=== PATIENT | female | born 1990 | race Two or more races ===

== ENCOUNTER 2019-07-06 23:20 | Emergency (ER) | payer OTHER ==
[2019-07-06] MEDS ORDERED: ACETAMINOPHEN 500 MG TABLET (FP) PO ONE (23:45)
[2019-07-06] MEDS ORDERED: ACETAMINOPHEN 325 MG TABLET (FP) ONE (23:46)
[2019-07-06 23:51] VITALS: BP 125/74; PULSE 74; TEMP 98.9; BMI 26.0
[2019-07-06 23:59] LABS: BASO % 0.3 % (0-2.0); EOS % 1.9 % (0-4.5); HEMATOCRIT 34.6 % (32.4-45.2); HEMOGLOBIN 11.6 GM/dL (10.7-15.3); LYMPH % 33.5 % (8-40); MCH 27.5 pg (25.7-33.7); MCHC 33.6 g/dl (32.0-36.0); MEAN CELL VOLUME 81.9 fl (80-96); MEAN PLT VOLUME 8.9 fl (7.5-11.1); MONO % 6.3 % (3.8-10.2); PLATELET COUNT 237 K/MM3 (134-434); RBC 4.22 M/mm3 (3.60-5.2); RDW 14.5 % (11.6-15.6); WHITE BLOOD COUNT 7.8 K/mm3 (4.0-10.0)
--- NOTE | 2019-07-07 00:18 | PDOC ---
Documentation entered by Janiya Pickering SCRIBE, acting as scribe for Zofia Barahona DO. Zfoia Barahona DO: This documentation has been prepared by the Ladan armando Brenda, SCRIBE, under my direction and personally reviewed by me in its entirety. I confirm that the documentation accurately reflects all work, treatment, procedures, and medical decision making performed by me. History of Present Illness - General Chief Complaint: Cold Symptoms Stated Complaint: HEADACHE/COUGH Time Seen by Provider: 07/06/19 23:30 History Source: Patient Exam Limitations: No Limitations - History of Present Illness Initial Comments: 07/06/19 23:45 The patient is a 29 year old female with no significant PMH who presents to the Ed for evaluation of non productive cough after exposure to COVID-19 at school. 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 Patient endorses having a fever Thursday, but returned to school on Thursday (07/04/19), however did not go for the following; Thursday and Thursday. Patient also endorses a headache, for which she took an unknown medication for 1 hour prior to ED arrival. Allergies: NKA PCP: Nitin Nguyen Past History - Past Medical History Allergies/Adverse Reactions: Allergies Allergy/AdvReac Type Severity Reaction Status Date / Time No Known Allergies Allergy Verified 04/12/16 14:52 Home Medications: Ambulatory Orders Ferrous Sulfate [Feosol] 325 mg PO BID #90 tablet 04/13/16 Medroxyprogesterone Acetate [Provera] 10 mg PO DAILY #20 tablet 04/13/16 Miscellaneous Medical Supply [Outpatient Order] 1 each ASDIR #1 misc 04/13/16 Miscellaneous Medical Supply [Outpatient Order] 1 each ASDIR #1 misc 04/13/16 Multivitamins [Multivit ([facility] Formul[facility])] 1 tab PO DAILY #60 tab 04/13/16 Asthma: No Cancer: No Cardiac Disorders: No Diabetes: No HTN: No Seizures: No Thyroid Disease: No - Psycho Social/Smoking Cessation Hx Smoking History: Never smoked Have you smoked in the past 12 months: No Hx Alcohol Use: Yes (SOCIAL) Drug/Substance Use Hx: No Substance Use Type: None Hx Substance Use Treatment: No Review of Systems - Review of Systems Able to Perform ROS?: Yes Comments:: 07/07/19 00:00 GENERAL/CONSTITUTIONAL: No weakness. HEAD, EYES, EARS, NOSE AND THROAT: (+) Headache. No change in vision. No ear pain or discharge. No sore throat. CARDIOVASCULAR: No chest pain or shortness of breath. RESPIRATORY: (+) nonproductive cough. No wheezing, or hemoptysis. GASTROINTESTINAL: No nausea, vomiting, diarrhea or constipation. GENITOURINARY: No dysuria, frequency, or change in urination. MUSCULOSKELETAL: No joint or muscle swelling or pain. No neck or back pain. SKIN: No rash NEUROLOGIC: No vertigo, loss of consciousness, or change in strength/sensation. ENDOCRINE: No increased thirst. No abnormal weight change. HEMATOLOGIC/LYMPHATIC: No anemia, easy bleeding, or history of blood clots. ALLERGIC/IMMUNOLOGIC: No hives or skin allergy. *Physical Exam - Physical Exam 07/06/19 23:59 GENERAL: Awake, alert, and fully oriented, in no acute distress HEAD: No signs of trauma EYES: PERRLA, EOMI, sclera anicteric, conjunctiva clear ENT: (+) Oropharynx is mildly erythematous. Auricles normal inspection, hearing grossly normal, nares patent. Moist mucosa NECK: Normal ROM, supple, no lymphadenopathy, JVD, or masses LUNGS: Breath sounds equal, clear to auscultation bilaterally. No wheezes, and no crackles HEART: Regular rate and rhythm, normal S1 and S2, no murmurs, rubs or gallops ABDOMEN: Soft, nontender, normoactive bowel sounds. No guarding, no rebound. No masses EXTREMITIES: Normal range of motion, no edema. No clubbing or cyanosis. No cords, erythema, or tenderness NEUROLOGICAL: Cranial nerves II through XII grossly intact. Normal speech, normal gait SKIN: Warm, Dry, normal turgor, no rashes or lesions noted. ED Treatment Course - LABORATORY CBC & Chemistry Diagram: 07/06/19 23:50 07/06/19 23:50 Medical Decision Making - Medical Decision Making 07/07/19 00:13 a/p: 29yo female with fever since thursday and cough. -pt c/o headache as well -no sore throat, no rhinorrhea -no rashes -no abd pain -pt works at [employer] where apparently 3 students have tested positive -swabs sent, labs sent, will obtain cxr -will give tylenol for pain -call placed to the [facility] - message has been left, paperwork and swabs have been complete/sent -will monitor and reassess 07/07/19 00:32 case discussed with [facility] - pending call from doc 07/07/19 01:01 flu neg rsv neg kamara improved with tylenol labs reviewed, no elevated wbc xray being performed 07/07/19 01:14 cxr clear pt stable for dc to home home quarantine pending coronavirus testing discussed home quarantine and when her family should get tested answered all quesitons Discharge - Discharge Information Problems reviewed: Yes Clinical Impression/Diagnosis: Cough, Headache Condition: Stable Disposition: HOME - Admission No - Follow up/Referral Referrals: Bin Anderson MD [Primary Care Provider] - - Patient Discharge Instructions Patient Printed Discharge Instructions: DI for Viral Upper Respiratory Infection -- Adult Additional Instructions: Please go straight home. Please place yourself on home quarantine. Please do not go to work and please do not go out to public placed. Please drink plenty of fluids. Please take tylenol or motrin as needed for the headache and fever. Your family should also stay home on quarantine. At this time, you need to watch for symptoms in your family, they do not need testing if they do not develop symptoms. Your womack virus testing will take a few days to result. We are waiting for the department of health. Please return to the ER with any further concerns or complaints. Please wash your hands frequently and always before touching your family or your face/food/mouth. please wash your hands after coughing, sneezing, or any concerns they are contaminated. - Post Discharge Activity
[2019-07-07 00:33] LABS: ALBUMIN 3.6 g/dl (3.4-5.0); BILIRUBIN,TOTAL 0.2 mg/dL (0.2-1); BLOOD UREA NITROGEN 15.4 mg/dL (7-18); CALCIUM 8.3 mg/dL (8.5-10.1); CREATININE 0.7 mg/dL (0.55-1.3); POTASSIUM 3.6 mmol/L (3.5-5.1); TOT PROT 7.5 g/dl (6.4-8.2)
== END 2019-07-07 01:23 | disposition home or self-care (01) ==
LOC: JER 23:20
DX: R05 Cough (principal); R51 Headache
CPT/HCPCS: 36415; 71045-TC-FY; 80053; 84703; 85025; 87804; 87807; 99284-25

== ENCOUNTER 2020-01-30 07:15 | Emergency (ER) | payer OTHER ==
[2020-01-30 07:27] VITALS: BP 128/78; PULSE 77; TEMP 98.4; BMI 30.6
[2020-01-30] MEDS ORDERED: DOCUSATE NA 100 MG/10 ML UNIT-DOSE CUPS PO ONE (07:50)
[2020-01-30] MEDS ORDERED: ACETAMINOPHEN 325 MG TABLET (FP) PO ONE (07:50)
[2020-01-30] MEDS ORDERED: ACETAMINOPHEN 500 MG TABLET (FP) ONE (07:53)
--- NOTE | 2020-01-30 07:53 | PDOC ---
History of Present Illness - General Chief Complaint: Ear Problem Stated Complaint: EAR PAIN Time Seen by Provider: 01/30/20 07:30 History Source: Patient Exam Limitations: No Limitations Past History - Travel History Traveled outside of the country in the last 30 days: No Close contact w/someone who was outside of country & ill: No - Medical History Allergies/Adverse Reactions: Allergies Allergy/AdvReac Type Severity Reaction Status Date / Time No Known Allergies Allergy Verified 01/30/20 07:23 Home Medications: Ambulatory Orders Ferrous Sulfate [Feosol] 325 mg PO BID #90 tablet 04/13/16 Medroxyprogesterone Acetate [Provera] 10 mg PO DAILY #20 tablet 04/13/16 Miscellaneous Medical Supply [Outpatient Order] 1 each ASDIR #1 misc 04/13/16 Miscellaneous Medical Supply [Outpatient Order] 1 each ASDIR #1 misc 04/13/16 Multivitamins [Multivit ([facility] Formulary)] 1 tab PO DAILY #60 tab 04/13/16 Ciprofloxacin HCl/Dexameth [Ciprodex Otic Suspension] 4 drop OU BID #1 bottle 01/30/20 Clindamycin [Cleocin -] 300 mg PO TID #21 capsule 01/30/20 Asthma: No Cancer: No Cardiac Disorders: No COPD: No Diabetes: No HTN: No Seizures: No Thyroid Disease: No - Reproductive History Is Patient Now?: No - Psycho-Social/Smoking History Smoking History: Never smoked Have you smoked in the past 12 months: No - Substance Abuse Hx (Audit-C & DAST Scrn) How often the patient has a drink containing alcohol: Monthly or less Number of drinks the patient has on a typical day: 1 or 2 How often the patient has six or more drinks on one occasion: Never Score: In Men: 4 or > Positive; In Women: 3 or > Positive: 1 Screen Result (Pos requires Nsg. Audit-10AR): Negative In the last yr the pt used illegal drug/Rx for NonMed reason: No Score: Yes response is considered Positive: 0 Screen Result (Positive result requires Nsg. DAST-10): Negative Review of Systems - Review of Systems Able to Perform ROS?: Yes Comments:: 01/30/20 07:51 CONSTITUTIONAL: Absent: fever, chills, diaphoresis, generalized weakness, malaise, loss of appe tite HEENT: Present: Ear pain Absent: rhinorrhea, nasal congestion, throat pain, throat swelling, difficulty swallowing, mouth swelling, eye pain, visual Changes CARDIOVASCULAR: Absent: chest pain, loss of consciousness, palpitations, irregular heart rate, peripheral edema RESPIRATORY: Absent: cough, shortness of breath, dyspnea with exertion, orthopnea, wheezing, stridor, hemoptysis GASTROINTESTINAL: Absent: abdominal pain, abdominal distension, nausea, vomiting, diarrhea, constipation, melena, hematochezia GENITOURINARY: Absent: dysuria, frequency, urgency, hesitancy, hematuria, flank pain, genital pain MUSCULOSKELETAL: Absent: myalgia, arthralgia, joint swelling SKIN: Absent: rash, itching, pallor HEMATOLOGIC/IMMUNOLOGIC: Absent: easy bleeding, easy bruising, lymphadenopathy, frequent infections ENDOCRINE: Absent: unexplained weight gain, unexplained weight loss, heat intolerance, cold intolerance NEUROLOGIC: Absent: headache, focal weakness or paresthesias, dizziness, unsteady gait, seizure, mental status changes, bladder or bowel incontinence PSYCHIATRIC: Absent: anxiety, depression, suicidal or homicidal ideation, hallucinations. Is the patient limited Vietnamese proficient: No *Physical Exam - Vital Signs Last Vital Signs Temp Pulse Resp BP Pulse Ox 98.4 F 77 16 128/78 100 01/30/20 07:15 01/30/20 07:15 01/30/20 07:15 01/30/20 07:15 01/30/20 07:15 - Physical Exam 01/30/20 07:52 GENERAL: The patient is awake, alert, and fully oriented, in no acute distress. HEAD: Normal with no signs of trauma. EYES: Pupils equal, round and reactive to light, extraocular movements intact, sclera anicteric, conjunctiva clear. HEENT: No nasal congestion or rhinorrhea. No sinus Tenderness. Mucous membranes are moist. No tonsillar erythema, exudate or edema. Uvula is midline. (-) R TM bulging, dullness or erythema. L TM is obstructed by wax, questionable otorrhea EXTREMITIES: Normal range of motion, no edema. NEUROLOGICAL: Normal speech, normal gait. PSYCH: Normal mood, normal affect. SKIN: Warm, Dry, normal turgor, no rashes or lesions noted. Medical Decision Making - Medical Decision Making 01/30/20 07:52 Patient is a 29-year-old female no past medical history who presents to the ER today for left-sided ear pain. She states her pain started over a week ago. She states she has had 2 rounds of amoxicillin given to her by her primary care doctor in urgent care with little relief of her symptoms. She states has been taking Tylenol Motrin without relief of her pain. Denies dizziness, lightheadedness nausea and vomiting. A/P: Earache On exam there is a large chunk of earwax within the left ear obstructing the TM. Colace ordered, will flush the ear and reevaluate the TM. 01/30/20 08:54 Ear canal was flushed with wax removed L TM with pustules behind the TM, also noted otorrhea in canal as well Will place pt on Ciprodex drops and switch pt to Clindamycin for AOM DC home with ENT follow up I discussed the physical exam findings, ancillary test results and final diagnoses with the patient. I answered all of the patient's questions. The patient was satisfied with the care received and felt comfortable with the discharge plan and treatment plan. The Patient agrees to follow up with the primary care physician/specialist within 24-72 hours. Return precautions were given. Discharge - Discharge Information Problems reviewed: Yes Clinical Impression/Diagnosis: Otitis media Qualifiers: Otitis media type: suppurative Chronicity: acute Laterality: left Recurrence: non-recurrent Spontaneous tympanic membrane rupture: without spontaneous rupture Qualified Code(s): H66.002 - Acute suppurative otitis media without spontaneous rupture of ear drum, left ear Otitis externa Qualifiers: Otitis externa type: unspecified type Chronicity: acute Laterality: left Qualified Code(s): H60.502 - Unspecified acute noninfective otitis externa, left ear Condition: Stable Disposition: HOME - Admission No - Follow up/Referral Referrals: Cameron Duran MD [Staff Physician] - Ravinder Barksdale MD [Staff Physician] - - Patient Discharge Instructions Patient Printed Discharge Instructions: DI for Otitis Externa, DI for Otitis Media (Middle Ear Infection)-Child Additional Instructions: You were seen today for ear pain. You have an ear infection behind the ear drum as well as in the ear canal. Please take the clindamycin as directed. Stop taking the amoxicillin. Please take this medication with food. You may also use the eardrops in both ears twice a day to help with the pain. You may take Motrin 600 mg every 6 hours. Please follow-up with ENT today. 2 referrals have been provided to you. Return to the ER for worsening pain, fever or if you have any changes in your symptoms Hoy te vieron por dolor de odo. Tiene ramos infeccin de odo detrs del tmpano y en el canal auditivo. Hough la clindamicina segn las indicaciones. Deje de ty amoxicilina. Hough sasha medicamento con comida. Tambin puede usar las gotas para los odos en ambos odos dos veces al da para ayudar con el dolor. Puede ty Motrin 600 mg cada 6 horas. Mary Alice un seguimiento con ENT hoy. Se le de león proporcionado 2 referencias. Regrese a la adolfo de emergencias si el dolor empeora, la fiebre o si tiene algn cambio en gillian sntomas Print Language: [id number] - Post Discharge Activity Work/Back to School Note: Back to Work
--- OUTSIDE RECORDS SUMMARY | 2020-01-30 07:54 | XMS ---
:1990 Author Organization [facility] Support Name Relationship Address Phone [facility] Unavailable [address] [place] [address] UE Unavailable Unavailable Unavailable TAZ HOWARD FRIEND [address] [place] [address] MARY ELLEN RANGEL SISTER [address] [place] [address] TAZ GLASGOW Unavailable [address] [place] [place] [address] Re-disclosure Warning The records that you are about to access may contain information from federally- assisted alcohol or drug abuse programs. If such information is present, then the following federally mandated warning applies: This information has been disclosed to you from records protected by federal confidentiality rules (42 CFR part 2). The federal rules prohibit you from making any further disclosure of this information unless further disclosure is expressly permitted by the written consent of the person to whom it pertains or as otherwise permitted by 42 CFR part 2. A general authorization for the release of medical or other information is NOT sufficient for this purpose. The Federal rules restrict any use of the information to criminally investigate or prosecute any alcohol or drug abuse patient.The records that you are about to access may contain highly sensitive health information, the redisclosure of which is protected by Article 27-F of the [place] Public Health law. If you continue you may haveaccess to information: Regarding HIV / AIDS; Provided by facilities licensed or operated by the [facility] Office of Mental Health; or Provided by the [facility] Office for People With Developmental Disabilities. If such information is present, then the following [facility] mandated warning applies: This information has been disclosed to you from confidential records which are protected by state law. State law prohibits you from making any further disclosure of this information without the specific written consent of the person to whom it pertains, or as otherwise permitted by law. Any unauthorized further disclosure in violation of state law may result in a fine or chcf sentence or both. A general authorization for the release of medical or other information is NOT sufficient authorization for further disclosure. Allergies and Adverse Reactions Type Description Substance Reaction Status Data Source(s ) No Known No Known Allergies No Known eCW3 ( [place] [facility]) No Known No Known Allergies No Known eCW3 ( [place] [facility]) No Known No Known Allergies No Known eCW3 ( [place] [facility]) Encounters Encounter Providers Location Date Indications Data Source(s ) Outpatient [facility] 11/29/2018 eCW3 ([facility] A28 12:00:00 AM [facility]) EDT - 11/29/2018 12:00:00 AM EDT [facility]patient [facility] 10/22/2018 eCW3 ([facility] A28 12:00:00 AM [facility]) EDT - 10/22/2018 12:00:00 AM EDT [facility] 08/11/2018 eCW3 ([facility] A28 12:00:00 AM [facility]) EDT - 08/11/2018 12:00:00 AM EDT Medications Medication Brand Start Product Dose Route Administrative Pharmacy [facility] Indications Reaction Description Data Name Date Form Instructions Instructions Source(s) Fluticasone Flutic .0 active Flutica sone eCW3 Propionate asone 2019 {spra Propionate ( [facility] 50 MCG/ACT Propio 12:00: y_in_ 50 MCG/AC T [place] to 00 AM each_ Health 50 EST nostr Care) MCG/AC il} T Fluticasone Flutic .0 active Flutica sone eCW3 Propionate asone 2020 {spra Propionate ( [facility] 50 MCG/ACT Propio 12:00: y_in_ 50 MCG/AC T [place] to 00 AM each_ Health 50 EST nostr Care) MCG/AC il} T Ibuprofen Ibupro 06/30/ active Ibuprofen eCW3 800 MG Oral fen 2020 800 MG ([place] Tablet 800 MG 12:00: [place] 00 AM Health EST Care) Cholecalcif UNK .0 active Cholecalc reshma eCW3 demar 1000 2019 {caps rol 1000 ([place] UNIT 12:00: ule} UNIT [place] 00 AM Health EST Care) Cholecalcif UNK .0 active Cholecalc reshma eCW3 demar 1000 2018 {caps rol 1000 ([place] UNIT 12:00: ule} UNIT [place] 00 AM Health EST Care) Ascorbic Ascorb .0 active Ascorbic e CW3 Acid 250 MG ic 2019 {tabl Acid 250 mg ([place] Oral Tablet Acid 12:00: et} [place] Ascorbic 250 mg 00 AM Health Acid 250 mg EST Care) ferrous Ferrou .0 active Ferrous eCW 3 sulfate 325 s 2018 {tabl Sulfate 325 ([place] MG Oral Sulfat 12:00: et} (65 Fe) MG Ri pawel Tablet e 325 00 AM Health Ferrous (65 EST Care) Sulfate 325 Fe) MG (65 Fe) MG ferrous Ferrou .0 active Ferrous eCW 3 sulfate 325 s 2018 {tabl Sulfate 325 ([facility] MG Oral Sulfat 12:00: et} (65 Fe) MG Ri pawel Tablet e 325 00 AM Health Ferrous (65 EST Care) Sulfate 325 Fe) MG (65 Fe) MG ferrous Ferrou .0 active Ferrous eCW 3 sulfate 325 s 2019 {tabl Sulfate 325 ([facility] MG Oral Sulfat 12:00: et} (65 Fe) MG Ri pawel Tablet e 325 00 AM Health Ferrous (65 EST Care) Sulfate 325 Fe) MG (65 Fe) MG Feosol 200 Feosol 08/13/ suspend Feosol 200 eCW3 (65 Fe) MG 200 2019 ed (65 Fe) MG ([facility] (65 12:00: [place] Fe) MG 00 AM Health EDT Care) Ortho UNK 1.0 suspend Ortho eCW3 Tri-Cyclen 2017 {tabl ed Tri-Cyclen ([facility] () 12:00: et} (28) [place] 0.18/0.215/ 00 AM 0.18/0.215/0 Health 0.25 MG-35 EDT .25 MG-35 Care ) MCG MCG Provera UNK 04/13/ suspend Provera eCW3 2016 ed ([place] 12:00: [place] 00 AM Health EST Care) Microgestin Microg 1.0 suspend Microg estin eCW3 05/16 estin 2016 {tabl ed 05/16 ([facility] MG-MCG 05/16 12:00: et} MG-MCG [place] - [address] [facility] MG-MCG EDT Care) Breast Pump UNK 02/16/ suspend Breast P ump eCW3 1 2014 ed 1 ([place] 12:00: [place] [address] [facility] EDT Care) Breast Pump UNK 02/07/ suspend Breast P ump eCW3 1 2014 ed 1 ([place] 12:00: [place] [address] [facility] EDT Care) Breast Pump UNK 01/11/ suspend Breast P ump eCW3 1 2014 ed 1 ([place] 12:00: [place] [address] [facility] EDT Care) UNK 05/24/ suspend eC W3 Vitamins 2014 ed Vitamins ([place] 12:00: [place] [address] [facility] EST Care) Vit Calcium UNK suspend Vit Calciu m eCW3 Citrate + D ed Citrate + D ( [facility]) Iron UNK suspend Iron eCW3 ([place] ed (Ferrous ([place] Gluconate) Gluconate) [facility]) Insurance Providers Payer name Policy type Policy ID Covered Covered republican's Policy P winsome / Coverage republican ID relationship to [place] Inf ormation type murphy P MEDICAID [id number] SP [id number] O MEDICAID [id number] SP [id number] [place] [facility] [id number] S [id number] Options MKD Medicaid [id number] S [id number] Wrap Claims [facility] [id number] S [id number] FFS [place] [id number] S [id number] Vision MKD Dental [id number] S [id number] [employer] [id number] Problems, Conditions, and Diagnoses Code Display Name Description Problem Type Effective Data Sour ce(s) Dates N93.9 Vaginal spotting Vaginal spotting Problem 11/29/2018 eC W3 ([place] 12:00:00 AM [facility] EDT Care) N92.1 Excessive and Excessive and Problem 08/11/2018 eCW3 ([facility] frequent frequent 12:00:00 AM [facility] menstruation with menstruation with EDT Care) irregular cycle irregular cycle N39.46 Mixed stress and Mixed stress and Problem 07/23/2017 eC W3 ([place] urge urinary urge urinary 12:00:00 AM [place] [facility] incontinence incontinence EDT Care) N39.3 Stress Stress Problem 07/23/2017 eCW3 ([place] incontinence of incontinence of 12:00:00 AM [facility] urine urine EDT Care) D50.0 Iron deficiency Iron deficiency Problem 04/22/2016 eCW3 ([place] anemia due to anemia due to 12:00:00 AM [place] [facility] blood chronic blood EST Care) loss loss 280.9 IRON DEFICIENCY IRON DEFIC ANEMIA Diagnosis 06/29/2018 GR GRICELDA ([place] [facility] Results ID Date Data Source [id number] 10/28/2019 04:18:00 PM EDT [facility] Name Value Range Interpretation Code Description Data Jackie rce(s) Supporting Document(s ) SARS-COV-2 [facility] RESP Diagnostics QL TALIB+PROBE This lab was ordered by [facility] [id number] and rep orted by [employer] BETO. Procedure Social History Code Duration Value Status Description Data Source(s ) Smoking 08/03/2019 12:00:00 Never Smoker completed Never Smoker e CW3 ([facility]) Smoking 08/03/2019 12:00:00 Never Smoker completed Never Smoker e CW3 ([facility]) Smoking 04/01/2019 12:00:00 Never Smoker completed Never Smoker e CW3 ([facility]) Never Smoker completed Never Smoker eCW3 ([facility]) Never Smoker completed Never Smoker eCW3 ([facility]) Never Smoker completed Never Smoker eCW3 ([facility]) Vital Signs ID Date Data Source UNK Name Value Range Interpretation Code Description Data Source(s) Diastolic blood 74 mm[Hg] 74 mm[Hg] eCW3 ([facility]) Systolic blood 112 mm[Hg] 112 mm[Hg] eCW3 ([facility]) Body temperature 98.1 [degF] 98.1 [degF] eCW3 ( [facility]) Heart rate 20 /min 20 /min eCW3 ([facility]) Body mass index 30.42 kg/m2 30.42 kg/m2 eCW3 ([facility] (BMI) [Ratio] [facility]) Body weight 161 [lb_av] 161 [lb_av] eCW3 ([facility]) Body height 61 [in_i] 61 [in_i] eCW3 ([facility]) Diastolic blood 65 mm[Hg] 65 mm[Hg] eCW3 ([facility]) Systolic blood 106 mm[Hg] 106 mm[Hg] eCW3 ([facility]) Body temperature 98.0 [degF] 98.0 [degF] eCW3 ( [facility]) Heart rate 20 /min 20 /min eCW3 ([facility]) Body mass index 29.66 kg/m2 29.66 kg/m2 eCW3 ([facility] (BMI) [Ratio] [facility]) Body weight 157 [lb_av] 157 [lb_av] eCW3 ([facility]) Body height 61 [in_i] 61 [in_i] eCW3 ([facility]) Diastolic blood 66 mm[Hg] 66 mm[Hg] eCW3 ([facility]) Systolic blood 103 mm[Hg] 103 mm[Hg] eCW3 ([facility]) Body temperature 99.1 [degF] 99.1 [degF] eCW3 ( [facility]) Heart rate 20 /min 20 /min eCW3 ([facility]) Body mass index 29.28 kg/m2 29.28 kg/m2 eCW3 ([facility] (BMI) [Ratio] [facility]) Body weight 155 [lb_av] 155 [lb_av] eCW3 ([facility]) Body height 61 [in_i] 61 [in_i] eCW3 ([facility]) Patient Treatment Plan of Care Planned Activity Planned Date Details Description Data Source (s) Cholecalciferol 1000 UNIT 04/11/2019 eC W3 ([place] 12:00:00 AM [facility]) Ascorbic Acid 250 MG Oral 04/03/2019 eC W3 ([facility] Tablet 12:00:00 AM EST Health Care) ferrous sulfate 325 MG Oral 04/03/2019 eCW3 ([place] Tablet 12:00:00 AM [facility])
== END 2020-01-30 09:06 | disposition home or self-care (01) ==
LOC: JERFT 07:15 → JER 07:15 → JERFT 09:06
DX: H66.002 Acute suppurative otitis media without spontaneous rupture of ear drum, left ear (principal); H60.502 Unspecified acute noninfective otitis externa, left ear
CPT/HCPCS: 99283-25

== ENCOUNTER 2022-04-09 15:50 | Emergency (ER) | payer OTHER ==
[2022-04-09 16:18] VITALS: BP 127/77; PULSE 72; RESP 20; TEMP 98.5; BMI 31.6
[2022-04-09 19:07] LABS: BASO % 0.3 % (0-2.0); EOS % 0.3 % (0-4.5); HEMATOCRIT 31.3 % (32.4-45.2); HEMOGLOBIN 9.4 GM/dL (10.7-15.3); LYMPH % 25.2 % (8-40); MCHC 30.2 g/dl (32.0-36.0); MEAN CELL VOLUME 65.4 fl (80-96); MEAN PLT VOLUME 8.2 fl (7.5-11.1); MONO % 6.2 % (3.8-10.2); PLATELET COUNT 408 10^3/uL (134-434); RBC 4.78 M/mm3 (3.60-5.2); WHITE BLOOD COUNT 5.5 K/mm3 (4.0-10.0)
[2022-04-09 19:08] LABS: MCH 19.8 pg (25.7-33.7)
[2022-04-09 19:33] LABS: CALCIUM 8.9 mg/dL (8.5-10.1)
[2022-04-09 19:34] LABS: BLOOD UREA NITROGEN 9.2 mg/dL (7-18)
[2022-04-09 19:37] LABS: CREATININE 0.7 mg/dL (0.55-1.3)
[2022-04-09 20:13] LABS: ANISOCYTOSIS 3+; MACROCYTOSIS 0; OVALOCYTE 1+
[2022-04-09 21:53] LABS: URINE APPEARANCE CLEAR; URINE BILIRUBIN NEGATIVE (NEGATIVE); URINE COLOR YELLOW; URINE GLUCOSE (UA) NEGATIVE (NEGATIVE); URINE KETONE NEGATIVE (NEGATIVE); URINE LEUK ESTERASE NEGATIVE (NEGATIVE); URINE NITRITE NEGATIVE (NEGATIVE); URINE PROTEIN NEGATIVE (NEGATIVE); URINE UROBILINOGEN 0.2 mg/dL (0.2-1.0)
[2022-04-09 23:07] LABS: COCAINE, UR NEGATIVE (NEGATIVE); OPIATES, URI NEGATIVE (NEGATIVE); URINE AMPHETAMINES NEGATIVE (NEGATIVE); URINE BARBITURATES NEGATIVE (NEGATIVE)
[2022-04-09 23:08] LABS: METHADONE, UR NEGATIVE (NEGATIVE); PHENCYCLIDINE,URINE NEGATIVE (NEGATIVE); URINE BENZODIAZEPINES NEGATIVE (NEGATIVE)
== END 2022-04-09 20:29 | disposition home or self-care (01) ==
LOC: JER 15:50 → JERFT 15:50
DX: F41.9 Anxiety disorder, unspecified (principal); D64.9 Anemia, unspecified
CPT/HCPCS: 36415; 80048; 80307; 81003; 84443; 85025; 93005; 93010; 99284-25

== ENCOUNTER 2023-04-26 23:05 | Inpatient (IN) | payer OTHER ==
[2023-04-26] MEDS: ELECTROLYTE-148 SOLN 1,000 ML IV SCH (23:45)
[2023-04-27 00:35] LABS: BASO % 0.2 % (0-2.0); EOS % 0.3 % (0-4.5); HEMOGLOBIN 12.1 GM/dL (10.7-15.3); LYMPH % 14.5 % (8-40); MCH 28.7 pg (25.7-33.7); MCHC 33.7 g/dl (32.0-36.0); MEAN CELL VOLUME 85.1 fl (80-96); MEAN PLT VOLUME 9.2 fl (7.5-11.1); MONO % 5.8 % (3.8-10.2); NEUT % 79.2 % (42.8-82.8); PLATELET COUNT 213 10^3/uL (134-434); RBC 4.23 M/mm3 (3.60-5.2); RDW 13.4 % (11.6-15.6); WHITE BLOOD COUNT 12.5 K/mm3 (4.0-10.0)
[2023-04-27 00:43] VITALS: BMI 40.2
[2023-04-27 01:00] LABS: POTASSIUM 3.8 mmol/L (3.5-5.1)
[2023-04-27 01:01] LABS: CALCIUM 9.2 mg/dL (8.5-10.1)
[2023-04-27 01:05] LABS: CREATININE 0.4 mg/dL (0.55-1.3)
[2023-04-27 01:18] LABS: INR 0.93 (0.83-1.09); PROTHROMBIN TIME (PATIENT) 10.8 SEC (9.7-13.0)
[2023-04-27 01:21] LABS: ACTIVATED PTT 27.4 SECONDS (25.2-36.5)
[2023-04-27] MEDS ORDERED: OXYTOCIN 20 UNITS in 0.9% NS 20 UNIT/1,000 ML INFUS.BAG IV ONE (01:27)
[2023-04-27] MEDS: OXYTOCIN 20 UNITS in 0.9% NS 20 UNIT/1,000 ML INFUS.BAG IV SCH (02:20)
[2023-04-27] MEDS ORDERED: MISOPROSTOL 200 MCG TABLET ONE (02:23)
[2023-04-27] MEDS: MISOPROSTOL 200 MCG TABLET PR ONE (02:25)
[2023-04-27] MEDS ORDERED: BISACODYL 10 MG SUPP.RECT RC PRN (02:42)
[2023-04-27] MEDS ORDERED: WITCH HAZEL 50% (TUCKS) 40 PAD/JAR PAD TP PRN (02:42)
[2023-04-27] MEDS ORDERED: BENZOCAINE 20% 57 GM BOTTLE TP PRN (02:42)
[2023-04-27] MEDS ORDERED: BENZOCAINE 28 GM HEMORRHOIDAL OINTMENT TP PRN (02:42)
[2023-04-27] MEDS ORDERED: ACETAMINOPHEN 325 MG TABLET (FP) PO PRN (02:42)
[2023-04-28 08:46] LABS: BASO % 0.5 % (0-2.0); HEMATOCRIT 32.3 % (32.4-45.2); HEMOGLOBIN 10.9 GM/dL (10.7-15.3); LYMPH % 29.7 % (8-40); MCHC 33.9 g/dl (32.0-36.0); MEAN CELL VOLUME 85.5 fl (80-96); MEAN PLT VOLUME 8.4 fl (7.5-11.1); NEUT % 61.8 % (42.8-82.8); PLATELET COUNT 192 10^3/uL (134-434); RBC 3.78 M/mm3 (3.60-5.2); RDW 13.7 % (11.6-15.6); WHITE BLOOD COUNT 6.7 K/mm3 (4.0-10.0)
[2023-04-28] MEDS ORDERED: SENNOSIDES/DOCUSATE COMBO (SENNA PLUS) TABLET (UD) PO PRN (22:00)
[2023-04-29] MEDS: IBUPROFEN 600 MG TABLET (FP) PO PRN (00:28)
[2023-04-29 10:37] VITALS: BP 120/75; PULSE 77; RESP 16; TEMP 98.1
== END 2023-04-29 18:15 | disposition home or self-care (01) | DRG 560 ==
LOC: JLDR 23:05 → J3W 04-27 04:52
PROVIDERS: ADMIT Student in an Organized Health Care Education/Training Program; ATTEND Student in an Organized Health Care Education/Training Program
PROC: 10E0XZZ Delivery of Products of Conception, External Approach (ICD-10-PCS; principal; 2023-04-27)
PROC: 0HQ9XZZ Repair Perineum Skin, External Approach (ICD-10-PCS; 2023-04-27)
DX: O70.0 First degree perineal laceration during delivery (principal); O32.6XX0 Maternal care for compound presentation, not applicable or unspecified; O48.0 Post-term pregnancy; Z3A.41 41 weeks gestation of pregnancy; Z37.0 Single live birth
CPT/HCPCS: 36415; 59025; 71046-TC-FY; 80048; 85025; 85610; 85730; 86780; 86850; 86900; 86901

== ENCOUNTER 2023-07-17 19:03 | Emergency (ER) | payer OTHER ==
[2023-07-17 19:12] VITALS: BP 139/97; PULSE 100; RESP 19; TEMP 98.3; BMI 36.9
[2023-07-17] MEDS ORDERED: ACETAMINOPHEN 500 MG TABLET (FP) ONE (19:58)
[2023-07-17] MEDS: ACETAMINOPHEN 500 MG TABLET (FP) PO ONE (20:17)
[2023-07-17 20:40] LABS: BASO % 0.4 % (0-2.0); EOS % 1.1 % (0-4.5); HEMATOCRIT 36.9 % (32.4-45.2); HEMOGLOBIN 12.6 GM/dL (10.7-15.3); LYMPH % 28.3 % (8-40); MCH 28.7 pg (25.7-33.7); MCHC 34.2 g/dl (32.0-36.0); MEAN PLT VOLUME 8.4 fl (7.5-11.1); MONO % 7.3 % (3.8-10.2); NEUT % 62.9 % (42.8-82.8); PLATELET COUNT 248 10^3/uL (134-434); RBC 4.39 M/mm3 (3.60-5.2); RDW 13.1 % (11.6-15.6); WHITE BLOOD COUNT 5.4 K/mm3 (4.0-10.0)
[2023-07-17 20:46] LABS: INR 1.01 (0.83-1.09); POTASSIUM 3.6 mmol/L (3.5-5.1); PROTHROMBIN TIME (PATIENT) 11.7 SEC (9.7-13.0)
[2023-07-17 20:48] LABS: CALCIUM 9.1 mg/dL (8.5-10.1)
[2023-07-17 20:49] LABS: ALBUMIN 3.8 g/dl (3.4-5.0); BLOOD UREA NITROGEN 10.3 mg/dL (7-18)
[2023-07-17 20:50] LABS: ACTIVATED PTT 32.4 SECONDS (25.2-36.5)
[2023-07-17 20:53] LABS: CREATININE 0.6 mg/dL (0.55-1.3)
[2023-07-17 20:54] LABS: BILIRUBIN,TOTAL 0.3 mg/dL (0.2-1)
[2023-07-17 20:55] LABS: TOT PROT 7.6 g/dl (6.4-8.2)
[2023-07-17] MEDS ORDERED: ALPRAZolam 0.25 MG TABLET PO PRN (21:43)
[2023-07-17] MEDS: LORazepam 2 MG/ML SDV VIAL IVPUSH ONE (22:30)
== END 2023-07-18 04:51 | disposition home or self-care (01) ==
LOC: JER 19:03
DX: R20.2 Paresthesia of skin (principal); M79.602 Pain in left arm; R07.89 Other chest pain; Z20.822 Contact with and (suspected) exposure to COVID-19
CPT/HCPCS: 0241U-QW; 36415; 70551-TC; 71046-TC-FY; 80053; 84484; 85025; 85610; 85730; 86850; 86900; 86901; 93005; 93010; 93971; 99285-25